=== PATIENT | male | born 1965 | race American Indian/Alaskan Native ===

== ENCOUNTER 2019-03-07 08:27 | Emergency (ER) | payer SELFPAY ==
[2019-03-07 08:37] VITALS: BP 163/91
--- NOTE | 2019-03-07 08:53 | Emergency Department Report ---
ED Back Pain/Injury HPI - General Chief Complaint: Abdominal Pain Stated Complaint: RT FLANK PAIN Time Seen by Provider: 03/07/19 08:44 Source: patient, EMS Limitations: No Limitations - History of Present Illness Initial Comments: Patient is a 53-year-old male presents emergency room with complaints of right lower back pain that began 2 days ago. He states one morning he just woke up with it. He denies any fall or injury. Denies any radiation of the pain. He denies any nausea, vomiting, diarrhea, urinary symptoms, urinary retention, fever, numbness, weakness, bowel or bladder incontinence. He states the pain is worse with bending over and movement. States he has a past medical history of sickle cell trait. He states he has an allergy to sulfa. - Related Data Previous Rx's Medication Instructions Recorded Last Taken Type Cyclobenzaprine [Flexeril] 10 mg PO QHS PRN #10 tablet 03/07/19 Unknown Rx Naproxen [EC-Naproxen] 500 mg PO BID PRN #14 tablet. 03/07/19 Unknown Rx Allergies Allergy/AdvReac Type Severity Reaction Status Date / Time Sulfa (Sulfonamide Allergy Unknown Verified 03/07/19 09:30 Antibiotics) ED Review of Systems ROS: Stated complaint: RT FLANK PAIN Other details as noted in HPI Comment: All other systems reviewed and negative ED Past Medical Hx - Past Medical History Previous Medical History?: No Hx Sickle Cell Disease: Yes - Surgical History Past Surgical History?: No - Social History Smoking Status: Current Every Day Smoker Substance Use Type: Alcohol - Medications Home Medications: Home Medications Medication Instructions Recorded Confirmed Last Taken Type Cyclobenzaprine [Flexeril] 10 mg PO QHS PRN #10 tablet 03/07/19 Unknown Rx Naproxen [EC-Naproxen] 500 mg PO BID PRN #14 tablet. 03/07/19 Unknown Rx ED Physical Exam - General Limitations: No Limitations General appearance: alert, in no apparent distress - Head Head exam: Present: atraumatic, normocephalic - Eye Eye exam: Present: normal appearance - ENT ENT exam: Present: mucous membranes moist - Neck Neck exam: Present: normal inspection, full ROM. Absent: tenderness - Respiratory Respiratory exam: Present: normal lung sounds bilaterally. Absent: respiratory distress, wheezes, rales, rhonchi, stridor, chest wall tenderness, accessory muscle use, decreased breath sounds, prolonged expiratory - Cardiovascular Cardiovascular Exam: Present: regular rate, normal rhythm, normal heart sounds. Absent: systolic murmur, diastolic murmur, rubs, gallop - GI/Abdominal GI/Abdominal exam: Present: soft. Absent: distended, tenderness, guarding, rebound, rigid - Back Exam Back exam: Present: normal inspection, full ROM, paraspinal tenderness (right lumbar paraspinal muscular TTP, no midline C-spine, T-spine, or L-spine tenderness, no step offs, no deformities). Absent: CVA tenderness (R), CVA tenderness (L), vertebral tenderness - Neurological Exam Neurological exam: Present: alert, oriented X3, normal gait, other (equal cmm technician strength, 5/5 strength in the BUE/BLE, sensation intact throughout) - Psychiatric Psychiatric exam: Present: normal affect, normal mood - Skin Skin exam: Present: warm, dry, intact ED Course Vital Signs 03/07/19 03/07/19 08:32 09:29 Temperature 97.7 F Pulse Rate 62 Respiratory 18 18 Rate Blood Pressure 163/91 O2 Sat by Pulse 93 Oximetry ED Medical Decision Making - Medical Decision Making Patient is a 53-year-old male presents emergency room with complaints of right lower back pain that began 2 days ago. He states one morning he just woke up with it. He denies any fall or injury. Denies any radiation of the pain. He denies any nausea, vomiting, diarrhea, urinary symptoms, urinary retention, fever, numbness, weakness, bowel or bladder incontinence. He states the pain is worse with bending over and movement. States he has a past medical history of sickle cell trait. He states he has an allergy to sulfa. vitals are stable. he states that his blood pressure fluctuates and that it is elevated during some of his visits. on exam: right lumbar paraspinal muscular TTP, no midline C-spine, T-spine, or L-spine tenderness, no step offs, no deformities, equal cmm technician strength, 5/5 strength in the BUE/BLE, sensation intact throughout, no CVAT. Symptoms and examination consistent with low back muscle strain. Patient does not require emergent imaging at this time, patient has had no trauma, no unexplained weight loss, neurological symptoms, fever, IV drug use, steroid use, history of cancer. Patient given prescription for Flexeril and naproxen for low back strain. advised pt to Please take medication as prescribed as needed. Do not drive or operate heavy machinery while taking muscle relaxer. May use ice pack, heating pad, rest, epsom salt bath. Follow-up with a primary care doctor in the next 2-3 days. Given a list of community clinics. Return to the emergency room for any new or worsening symptoms. - Differential Diagnosis strain, sprain, DDD, arthritis, disc herniation, sciatica Critical care attestation.: If time is entered above; I have spent that time in minutes in the direct care of this critically ill patient, excluding procedure time. ED Disposition Clinical Impression: Low back strain Qualifiers: Encounter type: initial encounter Qualified Code(s): S39.012A - Strain of muscle, fascia and tendon of lower back, initial encounter Disposition: TO HOME OR SELFCARE Is pt being admited?: No Does the pt Need Aspirin: No Condition: Stable Instructions: Muscle Strain (ED) Additional Instructions: Please take medication as prescribed as needed. Do not drive or operate heavy machinery while taking muscle relaxer. May use ice pack, heating pad, rest, epsom salt bath. Follow-up with a primary care doctor in the next 2-3 days. Given a list of community clinics. Return to the emergency room for any new or worsening symptoms. Prescriptions: Cyclobenzaprine [Flexeril] 10 mg PO QHS PRN #10 tablet PRN Reason: Muscle Spasm Naproxen [EC-Naproxen] 500 mg PO BID PRN #14 tablet. PRMyra Reason: pain Referrals: ELLIOTT COOL MD [Staff Physician] - 2-3 Days [facility] [Outside] - 2-3 Days Time of Disposition: 08:52 Print Language: ALBAN[place]
[2019-03-07] MEDS ORDERED: KETOROLAC 30 MG/1 ML INJ IM ONE (09:22)
[2019-03-07] MEDS ORDERED: KETOROLAC 30 MG/1 ML INJ ONE (09:25)
== END 2019-03-07 09:32 | disposition home or self-care (01) ==
LOC: ED 08:27
DX: S39.012A Strain of muscle, fascia and tendon of lower back, initial encounter (principal); F17.200 Nicotine dependence, unspecified, uncomplicated; Z88.2 Allergy status to sulfonamides; X58.XXXA Exposure to other specified factors, initial encounter; Y93.89 Activity, other specified; Y92.89 Other specified places as the place of occurrence of the external cause; Y99.8 Other external cause status
CPT/HCPCS: 96372; 99283; J1885